=== PATIENT | female | born 1990 | race Two or more races ===

== ENCOUNTER 2019-05-24 20:45 | Inpatient (IN) | payer OTHER ==
[2019-05-24] MEDS ORDERED: LACTATED RINGERS SOLUTION 1,000 ML IV ONE (22:00)
[2019-05-24] MEDS ORDERED: LACTATED RINGERS SOLUTION 1,000 ML IV SCH (22:45)
[2019-05-24] MEDS ORDERED: BUTORPHANOL TARTRATE 1 MG/ML VIAL IVPB ONE (23:24)
[2019-05-24] MEDS ORDERED: BUTORPHANOL TARTRATE 1 MG/ML VIAL ONE (23:37)
--- NOTE | 2019-05-24 23:37 | HP ---
Past Medical History - Primary Care Physician PCP:: Isaías Vo - Admission Chief Complaint: labor History Source: Patient Limitations to Obtaining History: No Limitations - Past Medical History TAX CONSULTANT: No: Alzheimer's, CVA, Dementia, Migraine, Multiple Sclerosis, Peripheral Neuropathy, Parkinson's, Seizure, Syncope, TIA, Vertigo, Other Cardiovascular: No: AFIB, Aneurysm, Aortic Insufficiency, Aortic Stenosis, CAD, CHF, Deep Vein Thrombosis, HTN, Hyperlipdemia, [place], Mitral Insufficiency, Mitral Stenosis, Murmur, Pulmonary Hypertension, Other Pulmonary: No: Asthma, Bronchitis, Cancer, COPD, O2 Dependent, Pneumonia, Previously Intubated, Pulmonary Embolus, Pulmonary Fibrosis, Sleep Apnea, Other Gastrointestinal: Yes: Constipation, Other (gallbladder) Hepatobiliary: No: Cirrhosis, Cholelithiasis, Cholecystitis, Choledocholithiasis , Hepatitis A, Hepatitis B, Hepatitis C, Other Renal/: No: Renal Failure, Renal Inusuff, BPH, Cancer, Hematuria, Hemodialysis , Neurogenic Bladder, Renal Calculi, UTI, Other Reproductive: No: Ectopic , Endometriosis, Fibroids, PID, Polycystic Ovary Syndrome, Postmenopausal, Other ...: 1 ...Para: 0 ...Term: 0 ...: 0 ...Spon : 0 ...Induced : 0 ...LMP: 08/19/18 ... Weeks Gestation by Dates: 39.4 ...EDC by Dates: 05/26/19 Heme/Onc: No: Anemia, B12 Deficiency, Bleeding Disorder, Cancer, Current Chemotherapy, Current Radiation Therapy, Hemochromatosis, Hypercoaguable State, Myeloproliferative Synd, Sickle Cell Disease, Sickle Cell Trait, Thrombocytopenia, Other Infectious Disease: No: AIDS, C-Diff, Herpes Zoster, HIV, MRSA, STD's, Tuberculosis, VREF, Other Psych: No: Addictions, Anxiety, Bipolar, Depression, Panic, Psychosis, Schizophrenia, Other Musculoskeletal: No: Bursitis, Chronic low back pain, Hemiparesis, Hemiplegia, Osteoarthritis, Paraplegia, Other Rheumatology: No: Fibromyalgia, Gout, Lupus, Rheumatoid Arthritis, Sarcoidosis, Vasculitis, Other ENT: No: Allergic Rhinitis, Sinusitis, Other Endocrine: No: Allen's Disease, Cranston's Disease, Diabetes Insipidus, Diabetes Mellitus, Hyperparathyroidism, Hyperthyroidism, Hypothyroidism, Osteopenia, SIADH, Other Dermatology: No: Basal Cell, Cellulitis, Eczema, Melanoma, Psoriasis, Squamous Cell, Other - Past Surgical History Past Surgical History: No: None, AAA Repair, AICD, Amputation, Appendectomy, Arthrosocopy, AV Fistula/Graft, Bariatric Surgery, Breast Biopsy, Bypass, CABG, Carotid Endarterectomy, Cataract Removal, Cholecystectomy, Colectomy, Colonoscopy, Colostomy, Craniotomy, , Cystectomy, Hernia Repair, Hysterectomy, Ileal Conduit, Ileosotomy, Joint Replacement, Kidney Transplant, Laminectomy, Liver Transplant, Mastectomy, Nephrectomy, Oopherectomy, Orchiectomy, Permanent Pacemaker, Prostatectomy, Splenectomy, Stent, Thoracotomy , TURP, Tonsillectomy, Tubal Ligation, Upper Endoscopy, Valve Replacement, Vasectomy, Vein Stripping/Ligation Hx Myomectomy: No Hx Transabdominal Cerclage: No - Smoking History Smoking history: Never smoked Have you smoked in the past 12 months: No - Alcohol/Substance Use Hx Alcohol Use: No History of Substance Use: reports: None - Social History History of Recent Travel: Yes Home Medications - Allergies Allergies/Adverse Reactions: Allergies Allergy/AdvReac Type Severity Reaction Status Date / Time No Known Allergies Allergy Verified 05/24/19 06:34 - Home Medications Home Medications: Ambulatory Orders Prenat 115/Iron Fum/Folic/Dss [ 19 Tablet] 1 tab PO DAILY 05/15/19 Family Disease History - Family Disease History Family Disease History: Diabetes: Mother Review of Systems - Review of Systems Constitutional: denies: No Symptoms, Chills, Diaphoresis, Fever, Lethargy, Loss of Appetite, Malaise, Night Sweats, Unintentional Wgt. Loss, Weakness, Other Eyes: denies: No Symptoms, Blind Spots, Blurred Vision, Double Vision, Eye Pain , Floaters, Photophobia, Recent Change in Vision, Other HENT: denies: No Symptoms, Difficult Swallowing, Ear Discharge, Ear Pain, Epistaxis, Gingival Bleeding, Hearing Loss, Mouth Swelling, Nasal Congestion, Ocular Prosthesis, Throat Pain, Toothache, Ringing in Ears, Other Neck: denies: No Symptoms, Decreased ROM, Lumps, Pain on Movement, Stiffness, Swollen Glands, Tenderness, Other Cardiovascular: denies: No Symptoms, Chest Pain, Edema, Palpitations, Shortness of Breath, Other Respiratory: denies: No Symptoms, Cough, Exercise Intolerance, Hemoptysis, Orthopnea, PND, Snoring, SOB, SOB on Exertion, Wheezing, Other Gastrointestinal: denies: No Symptoms, Abdominal Pain, Bloating, Constipation, Diarrhea, Dysphagia, Indigestion, Melena, Nausea, Rectal Bleeding, Vomiting, Vomiting Blood, Other Genitourinary: denies: No Symptoms, Burning, Discharge, Dysuria, Flank Pain, Frequency, Hematuria, Incontinence, Lesions, Menses, Pain, Testicular Mass, Testicular Pain, Testicular Swelling, Urgency, Vaginal Bleeding, Other Breasts: denies: No Symptoms Reported, See HPI, Breast Implants, Discharge from Nipple, Lumps, Pain, Skin Changes, Other Musculoskeletal: denies: No Symptoms, Back Pain, Crepitus, Decreased ROM, Extremity Pain, Joint Pain, Joint Swelling, Muscle Pain, Muscle Cramps, Muscle Weakness, Other Integumentary: denies: No Symptoms, Blister, Bruising, Change in Color, Eczema, Erythema, Incision, Lesions, Lump, Pallor, Pruritis, Rash, Wound, Other Neurological: denies: No Symptoms, Change in LOC, Change in Speech, Confusion, Dizziness, Headache, Incoordination, Numbness, Parasthesia, Pre-Existing Deficit , Seizure, Syncope, Tremors, Unsteady Gait, Weakness, Other Endocrine: denies: No Symptoms, Excessive Sweating, Flushing, Increased Hunger, Increased Thirst, Intolerance to Cold, Intolerance to Heat, Unexplained Weight Gain, Unexplained Weight Loss, Other Hematology/Lymphatic: denies: No Symptoms, Easily Bruised, Excessive Bleeding, Swollen Glands, Other Psychiatric: denies: No Symptoms, Altered Sleep Pattern, Anxiety, Depression, Hallucinations, Panic, Paranoia, Suicidal, Other Physical Exam - Maternity Vital Signs: Vital Signs Temperature 98.6 F 05/24/19 21:52 Pulse Rate 105 H 05/24/19 21:52 Respiratory Rate 20 05/24/19 21:52 Blood Pressure 108/78 05/24/19 21:52 O2 Sat by Pulse Oximetry (%) Constitutional: Yes: Well Nourished HENT: Yes: Atraumatic, Normocephalic Neck: Yes: Supple Cardiovascular: Yes: Regular Rate and Rhythm Breast(s): Yes: Other (deferred) - Abdominal Exam/OB Number of Fetuses: Single Presentation: Vertex Contractions: Yes Regularity: Regular Intensity: Mod/Strong Monitor Mode: External Category: I Accelerations: Uniform Decelerations: None - Vaginal Exam/OB Vaginal Bleediing: No Speculum Exam: Yes (no pooling, mucus plug noted, nitrixine +) Dilatation (cm): 6 Effacement (%): 80 Amniotic Membrane Status: Bulging Nitrazine Test: Positive Presentation: Vertex/Position (OA) Station: -2 - Physical Exam Edema: LUE: 1+, RUE: 1+ Hemorrhage Risk Assessment - Risk Factors Medium Risk Factors: No: Prior , uterine surgery,or multiple laparotomies, Multiple gestation, Greater than 4 previous births, History of previous hemorrhage, Large myomas, EFW greater than 4000g, Obesity ( BMI >40), Hematocrit < 30% & other, None High Risk Factors: No: Placenta previa, low lying, Suspected accreta/ percreta, Active bleeding on admission, Platelets less than 70,000, Known coagulopathy, None Imaging - Results Ultrasound: Report Reviewed Assessment/Plan 28 y/o G1 @ 39.5wks by LMP consistent with 3rd trimester sono, late care seeker , [place], GBS negative, + Chlamydia testing S/P treatment, reassuring status and stable maternal condition, GDS not done and hemoglobin A1C WNL. Patient desires IV pain controlled. -Expectant management -IV Stadol -Anticipate VD
[2019-05-24 23:38] LABS: BASO % 0.6 % (0-2.0); EOS % 0.1 % (0-4.5); HEMATOCRIT 35.7 % (32.4-45.2); HEMOGLOBIN 12.2 GM/dL (10.7-15.3); LYMPH % 14.7 % (8-40); MCH 29.8 pg (25.7-33.7); MCHC 34.3 g/dl (32.0-36.0); MEAN CELL VOLUME 86.8 fl (80-96); MEAN PLT VOLUME 8.1 fl (7.5-11.1); MONO % 5.7 % (3.8-10.2); NEUT % 78.9 % (42.8-82.8); PLATELET COUNT 234 K/MM3 (134-434); RBC 4.11 M/mm3 (3.60-5.2); RDW 13.5 % (11.6-15.6)
[2019-05-24] MEDS ORDERED: OXYTOCIN 20 UNITS in 0.9% NS 20 UNIT/1,000 ML INFUS.BAG IV ONE (23:38)
[2019-05-24] MEDS ORDERED: LIDOCAINE HCL 1% PRESERVATIVE FREE - 30ML VIAL ONE (23:38)
[2019-05-24 23:40] LABS: EPI CELLS 8.1 /HPF (0-5/HPF); HYALINE CASTS 35 /lpf (0-8); PH,URINE >= 9.0 (5.0-8.0); URINE APPEARANCE CLEAR; URINE BACTERIA 100.7 /hpf (NEGATIVE); URINE BILIRUBIN NEGATIVE (NEGATIVE); URINE COLOR YELLOW; URINE GLUCOSE (UA) NEGATIVE (NEGATIVE); URINE KETONE NEGATIVE (NEGATIVE); URINE LEUK ESTERASE TRACE (NEGATIVE); URINE NITRITE NEGATIVE (NEGATIVE); URINE PROTEIN NEGATIVE (NEGATIVE); URINE RBC 2 /hpf (0-4); URINE UROBILINOGEN 0.2 mg/dL (0.2-1.0); URINE WBC 6 /hpf (0-5)
[2019-05-24 23:52] LABS: COCAINE, UR NEGATIVE ng/ml (CUTOFF=300); METHADONE, UR NEGATIVE ng/ml (CUTOFF=300); OPIATES, URI NEGATIVE ng/ml (CUTOFF=300); PHENCYCLIDINE,URINE NEGATIVE ng/ml (CUTOFF=25); URINE AMPHETAMINES NEGATIVE ng/ml (CUTOFF=500); URINE BARBITURATES NEGATIVE ng/ml (CUTOFF=200); URINE BENZODIAZEPINES NEGATIVE ng/ml (CUTOFF=200)
[2019-05-24 23:58] VITALS: BMI 26.3
[2019-05-25 00:02] LABS: BLOOD UREA NITROGEN 4.8 mg/dL (7-18); CREATININE 0.5 mg/dL (0.55-1.3)
[2019-05-25 00:23] LABS: INR 0.96 (0.83-1.09); PROTHROMBIN TIME (PATIENT) 11.3 SEC (9.7-13.0)
[2019-05-25 00:25] LABS: ACTIVATED PTT 28.2 SECONDS (25.2-36.5)
[2019-05-25] MEDS ORDERED: ACETAMINOPHEN 325 MG TABLET (FP) ONE (05:58)
[2019-05-25] MEDS ORDERED: IBUPROFEN 600 MG TABLET (FP) PO ONE (05:58)
[2019-05-25] MEDS: ACETAMINOPHEN 325 MG TABLET (FP) PO PRN ×2 (06:00→10:05)
[2019-05-25] MEDS: IBUPROFEN 600 MG TABLET (FP) PO PRN ×2 (06:00→10:04)
[2019-05-25] MEDS ORDERED: BENZOCAINE 20% 57 GM BOTTLE TP PRN (06:01)
[2019-05-25] MEDS ORDERED: WITCH HAZEL 50% (TUCKS) 40 PAD/JAR PAD TP PRN (06:01)
[2019-05-25] MEDS ORDERED: BISACODYL 10 MG SUPP.RECT RC PRN (06:01)
[2019-05-25] MEDS ORDERED: BENZOCAINE 28 GM HEMORRHOIDAL OINTMENT TP PRN (06:01)
[2019-05-25] MEDS ORDERED: OXYTOCIN 20 UNITS in 0.9% NS 20 UNIT/1,000 ML INFUS.BAG IV SCH (06:15)
--- NOTE | 2019-05-25 06:31 | PN ---
Delivery - Delivery Vaginal Delivery: Spontaneous Type of Anesthesia: Local Episiotomy/Laceration: 2nd degree EBL (cc): 350 Delivery, Single - Stages of Labor Placenta: Yes: Spontaneous (intact, 3VC) - Condition of Infant Gender: Female Position: OA - Feeding Plan Initial Plan: Elected not to breastfeed exclusively throughout hospitalization Remarks - Remarks Remarks: Infant's head delivered with maternal expulsive efforts followed by shoulders and rest of the body. Placenta delivered spontaneously and intact. Exam revealed 2nd degree perineal laceration and repaired with 3.0 polysorb in standard fashion. Rectal exam revealed intact mucosa and excellent re- approximation. Instrument/sponge count correct x 2 and confirmed by nurse.
[2019-05-25] MEDS ORDERED: OXYTOCIN 20 UNITS in 0.9% NS 20 UNIT/1,000 ML INFUS.BAG IV ONE (07:45)
[2019-05-25] MEDS ORDERED: MORPHINE SULFATE 2 MG/ML VIAL IVPUSH ONE (10:45)
[2019-05-25] MEDS ORDERED: LIDOCAINE HCL 1% PRESERVATIVE FREE - 30ML VIAL ONE (11:14)
[2019-05-25] MEDS ORDERED: ONDANSETRON 4 MG/2 ML VIAL IVPUSH PRN (11:26)
[2019-05-25] MEDS ORDERED: LACTATED RINGERS SOLUTION 1,000 ML IV SCH (11:30)
--- NOTE | 2019-05-25 11:31 | PN ---
Progress Note (short form) - Note Progress Note: Patient evaluated for large expanding vaginal hematoma. Vitals stable and IV crystalloid fluid replacement initiated. Stat labs sent and patient will be going to the OR for evacuation.
[2019-05-25 11:42] LABS: BASO % 0.3 % (0-2.0); HEMATOCRIT 27.9 % (32.4-45.2); HEMOGLOBIN 9.6 GM/dL (10.7-15.3); LYMPH % 9.8 % (8-40); MCH 29.9 pg (25.7-33.7); MCHC 34.3 g/dl (32.0-36.0); MEAN CELL VOLUME 87.1 fl (80-96); MEAN PLT VOLUME 7.9 fl (7.5-11.1); MONO % 5.8 % (3.8-10.2); NEUT % 84.1 % (42.8-82.8); PLATELET COUNT 219 K/MM3 (134-434); RDW 13.2 % (11.6-15.6); WHITE BLOOD COUNT 14.5 K/mm3 (4.0-10.0)
[2019-05-25] MEDS ORDERED: MIDAZOLAM HCL 2 MG/2 ML SINGLE DOSE VIAL ONE (12:03)
[2019-05-25] MEDS ORDERED: SUCCINYLCHOLINE CHLORIDE 200 MG/10 ML SYRINGE ONE (12:09)
[2019-05-25] MEDS ORDERED: KETOROLAC TROMETHAMINE 30 MG/1 ML VIAL ONE (12:11)
[2019-05-25] MEDS ORDERED: DEXAMETHASONE SOD PHOSPHATE 4 MG/1 ML VIAL ONE (12:11)
[2019-05-25] MEDS ORDERED: LIDOCAINE HCL/PF 2% SDV 5ML VIAL ONE (12:11)
[2019-05-25] MEDS ORDERED: PROPOFOL 20 ML ONE ×2 (12:11→12:24)
[2019-05-25] MEDS ORDERED: ePHEDrine SULFATE 50 MG/1 ML AMPULE ONE (12:37)
[2019-05-25] MEDS ORDERED: SEVOFLURANE 250 ML BTL ONE (12:38)
[2019-05-25] MEDS ORDERED: ROCURONIUM BROMIDE 50 MG/5 ML SYRINGE ONE (13:03)
[2019-05-25] MEDS ORDERED: NEOSTIGMINE METHYLSULFATE 0.5 MG/ML - 10 ML MDV ONE (13:04)
[2019-05-25] MEDS ORDERED: GLYCOPYRROLATE 0.2 MG/1 ML VIAL ONE (13:05)
[2019-05-25 15:22] LABS: BASO % 0.2 % (0-2.0); HEMATOCRIT 29.9 % (32.4-45.2); HEMOGLOBIN 10.1 GM/dL (10.7-15.3); LYMPH % 8.7 % (8-40); MCH 29.3 pg (25.7-33.7); MCHC 33.9 g/dl (32.0-36.0); MEAN CELL VOLUME 86.5 fl (80-96); MEAN PLT VOLUME 7.8 fl (7.5-11.1); MONO % 2.3 % (3.8-10.2); NEUT % 88.8 % (42.8-82.8); PLATELET COUNT 174 K/MM3 (134-434); RBC 3.45 M/mm3 (3.60-5.2); RDW 14.5 % (11.6-15.6); WHITE BLOOD COUNT 13.1 K/mm3 (4.0-10.0)
[2019-05-25 15:34] LABS: INR 1.01 (0.83-1.09); PROTHROMBIN TIME (PATIENT) 11.9 SEC (9.7-13.0)
[2019-05-25 15:37] LABS: ACTIVATED PTT 27.4 SECONDS (25.2-36.5)
[2019-05-25 15:45] LABS: BLOOD UREA NITROGEN 3.3 mg/dL (7-18); CALCIUM 8.9 mg/dL (8.5-10.1); CREATININE 0.5 mg/dL (0.55-1.3); POTASSIUM 4.6 mmol/L (3.5-5.1)
--- NOTE | 2019-05-25 15:58 | OP ---
Operative Note - Note: Operative Date: 05/25/19 (DiC # [id number]) Pre-Operative Diagnosis: Vaginal hematoma Operation: Exam under anesthesia, evalcuation of hematoma and reoair Findings: see dictation Implants: none Post-Operative Diagnosis: Same as Pre-op Surgeon: Isaías Vo Anesthesia: General Estimated Blood Loss (mls): 1,000 Drains, Volume Out (mls): 2,000 Blood Volume Replaced (mls): 2 Fluid Volume Replaced (mls): 3,000 Operative Report Dictated: Yes
[2019-05-25] MEDS ORDERED: CEFAZOLIN 1 GM in DEXTROSE 5%-WATER - 50 ML IVPB SCH (16:00)
[2019-05-25] MEDS: CEFAZOLIN 1 GM/D5W 1 GM/50 ML BAG IVPB SCH (16:31)
--- NOTE | 2019-05-25 17:54 | OP ---
DATE OF OPERATION: 05/25/2019 ATTENDING: Tabby Ralph MD PREOPERATIVE DIAGNOSIS: A 28-year-old, 1, para 1, on day number 1, vaginal hematoma, expanding, with severe pain. POSTOPERATIVE DIAGNOSIS: A 28-year-old, 1, para 1, on day number 1, vaginal hematoma, expanding, with severe pain. PROCEDURE: Exam under anesthesia, evacuation of left vaginal sulcus hematoma. SURGEON: Tabby Ralph MD CONSTRUCTION DRILLER: None. ANESTHESIA: General. ESTIMATED BLOOD LOSS: 1 L. IV FLUIDS: 2 L of clear fluid. URINE OUTPUT: 2 L of clear urine. FINDINGS: A large expanding bleeding hematoma in left vaginal sulcus. Hematoma was involving the posterior aspect of the left labia majora and perianal area. Rectal examination prior to initiation of the procedure, during the procedure, and at conclusion of the procedure revealed intact rectal mucosa. COMPLICATIONS: None. BLOOD GIVEN: Intraoperative administration of 2 of packed red blood cells. The patient was taken to the operating room, where anesthesia was found to be adequate. A Jenkins catheter was previously placed in L&D atraumatically. The patient was prepped and draped in a normal sterile fashion. Appropriate timeout took place. Rectal examination, as previously mentioned, performed by attending. Exam revealed a large left vaginal sulcus hematoma approximately 10 x 15 cm. The previous perineal laceration repaired was taken down by the surgeon. The vaginal mucosa at the greatest point of hematoma distention was thin and friable. Incidental drainage of large hematoma occurred during examination as the vaginal tissue disintegrated at this point. Hematoma was completely explored and blood clots broken down. The area was copiously irrigated. A rectal exam ensued and intact rectal mucosa noted. The defect extended [facility] the length of the vagina and approximately 5 cm into left perineal area. Excellent visualization of the apex and hematoma cavity borders was obtained. The defect was repaired in 3 layers utilizing a combination of running and interrupted Polysorb 3-0 suture. The complete defect was obliterated. Appropriate structural reapproximation was achieved. The vaginal mucosa tear apex was identified and reapproximated with 3-0 Polysorb in a running locked fashion to the level of the hymenal ring. A crown stitch followed and perineal laceration repaired in the standard fashion. Excellent reapproximation and hemostasis was noted from the perineal and vaginal area. The vagina was packed with Kerlix. Instrument count, sponge count was reported correct x2 by the staff. Patient tolerated procedure well and was going to recovery room in stable condition. TABBY RALPH MD [id number] MTDD
[2019-05-25] MEDS ORDERED: oxyCODONE HCL 5 MG TABLET PO PRN (18:59)
[2019-05-26] MEDS: CEFAZOLIN 1 GM/D5W 1 GM/50 ML BAG IVPB SCH ×2 (01:01→08:39)
[2019-05-26 07:08] LABS: BASO % 0.2 % (0-2.0); EOS % 0.2 % (0-4.5); HEMATOCRIT 21.3 % (32.4-45.2); HEMOGLOBIN 7.3 GM/dL (10.7-15.3); LYMPH % 22.3 % (8-40); MCH 29.2 pg (25.7-33.7); MCHC 34.3 g/dl (32.0-36.0); MEAN CELL VOLUME 85.1 fl (80-96); MEAN PLT VOLUME 7.9 fl (7.5-11.1); MONO % 6.1 % (3.8-10.2); NEUT % 71.2 % (42.8-82.8); PLATELET COUNT 167 K/MM3 (134-434); RBC 2.51 M/mm3 (3.60-5.2); RDW 15.1 % (11.6-15.6); WHITE BLOOD COUNT 12.9 K/mm3 (4.0-10.0)
[2019-05-26 07:15] LABS: BLOOD UREA NITROGEN 4.3 mg/dL (7-18); CREATININE 0.4 mg/dL (0.55-1.3)
--- NOTE | 2019-05-26 08:08 | PN ---
Progress Note (short form) - Note Progress Note: Anesthesia Post op Pt seen and xamined S:Alert and awake comfortable O; Vital Signs Temperature 98.2 F 05/26/19 04:00 Pulse Rate 95 H 05/26/19 04:00 Respiratory Rate 18 05/26/19 04:00 Blood Pressure 94/61 05/26/19 04:00 O2 Sat by Pulse Oximetry (%) 100 05/25/19 21:00 CBC, BMP 05/26/19 06:22 05/26/19 06:22 A/P: s/p evacuation of vaginal hematoma Anemia Doing well post op Continue current care Augusto Alexis MD
--- NOTE | 2019-05-26 09:33 | PN ---
Post Progress Note - Subjective Subjective: Patient is doing well, reports improved pain and swelling to the area. Tom in place as well as packing. Patient is breast feeding, not yet ambulating, tolerating PO Post Day: 1 (POD # 1) Type of Delivery: Vital Signs: Vital Signs Temperature 98.2 F 05/26/19 04:00 Pulse Rate 95 H 05/26/19 04:00 Respiratory Rate 18 05/26/19 04:00 Blood Pressure 94/61 05/26/19 04:00 O2 Sat by Pulse Oximetry (%) 100 05/25/19 21:00 Breast Exam: Yes: Other (deferred) Uterus: Yes: Fundus Firm Incision: Yes: Other (Vaginal packing removed, mildly blood stained) Lochia, amount: Small Extremities: Yes: Calves non-tender Perineum: Yes: Laceration (Sutures are intact and incision closed, no active bleeding, left labia majora edema dexcreased with no induration nor crepitus, mild ecchymosis on left posterior labia majora and perineal/gluteal area, mild tenderness to palpation) Activity: Other (not yet) - Labs Labs: CBC WBC 12.9 K/mm3 (4.0-10.0) H 05/26/19 06:22 RBC 2.51 M/mm3 (3.60-5.2) L 05/26/19 06:22 Hgb 7.3 GM/dL (10.7-15.3) L 05/26/19 06:22 Hct 21.3 % (32.4-45.2) L D 05/26/19 06:22 MCV 85.1 fl (80-96) 05/26/19 06:22 MCH 29.2 pg (25.7-33.7) 05/26/19 06:22 MCHC 34.3 g/dl (32.0-36.0) 05/26/19 06:22 RDW 15.1 % (11.6-15.6) 05/26/19 06:22 Plt Count 167 K/MM3 (134-434) 05/26/19 06:22 MPV 7.9 fl (7.5-11.1) 05/26/19 06:22 Absolute Neuts (auto) 9.2 K/mm3 (1.5-8.0) H 05/26/19 06:22 Neutrophils % 71.2 % (42.8-82.8) 05/26/19 06:22 Lymphocytes % 22.3 % (8-40) D 05/26/19 06:22 Monocytes % 6.1 % (3.8-10.2) D 05/26/19 06:22 Eosinophils % 0.2 % (0-4.5) D 05/26/19 06:22 Basophils % 0.2 % (0-2.0) 05/26/19 06:22 Nucleated RBC % 0 % (0-0) 05/26/19 06:22 Other Findings, Remarks: Patient is not in acute distress, PP and breast feeding recommendations discussed. Assessment/Plan 28 y/o on PPD # 1 and POD #1 S/P left vaginal sulcus hematoma evacuation, in stable condition with improved clinical condition. S/P 2 PRBC intra-op administration. Vaginal packing removed today. Post-op anemia and patient is asymptomatic, adequate urinary output. -AM CBC -D/C tom and continue I/O monitoring -Stool softeners, nothing per vaginal nor rectum -Encourage ambulation -Consider transfusion if symptomatic once out of bed -Anticipate D/C home on POD/PPD # 3
[2019-05-26] MEDS: MAGNESIUM HYDROX 2400MG/30ML ORAL SUSPENSION 30 ML CUP PO SCH (10:48)
[2019-05-26] MEDS: ACETAMINOPHEN 325 MG TABLET (FP) PO PRN (13:44)
[2019-05-26] MEDS: IBUPROFEN 200 MG TABLET PO PRN (13:49)
[2019-05-26] MEDS ORDERED: SENNOSIDES/DOCUSATE COMBO (SENNA PLUS) TABLET (UD) PO PRN (22:00)
[2019-05-27 08:03] LABS: BASO % 0.3 % (0-2.0); EOS % 1.6 % (0-4.5); HEMATOCRIT 20.5 % (32.4-45.2); LYMPH % 24.9 % (8-40); MCHC 33.8 g/dl (32.0-36.0); MEAN CELL VOLUME 85.8 fl (80-96); MEAN PLT VOLUME 7.8 fl (7.5-11.1); MONO % 4.8 % (3.8-10.2); NEUT % 68.4 % (42.8-82.8); PLATELET COUNT 164 K/MM3 (134-434); RBC 2.39 M/mm3 (3.60-5.2); RDW 14.9 % (11.6-15.6); WHITE BLOOD COUNT 12.4 K/mm3 (4.0-10.0)
[2019-05-27] MEDS: ACETAMINOPHEN 325 MG TABLET (FP) PO PRN ×2 (08:16→20:47)
[2019-05-27] MEDS: IBUPROFEN 200 MG TABLET PO PRN ×2 (08:17→20:47)
[2019-05-27 08:49] LABS: HEMOGLOBIN 6.9 GM/dL (10.7-15.3)
[2019-05-27] MEDS: MAGNESIUM HYDROX 2400MG/30ML ORAL SUSPENSION 30 ML CUP PO SCH (10:50)
--- NOTE | 2019-05-27 15:06 | PN ---
Post Progress Note Post Day: 2 Type of Delivery: Vital Signs: Vital Signs Temperature 98.8 F 05/27/19 13:18 Pulse Rate 112 H 05/27/19 13:18 Respiratory Rate 18 05/27/19 13:18 Blood Pressure 108/61 05/27/19 13:18 O2 Sat by Pulse Oximetry (%) 100 05/25/19 21:00 - Labs Labs: CBC WBC 12.4 K/mm3 (4.0-10.0) H 05/27/19 06:51 RBC 2.39 M/mm3 (3.60-5.2) L 05/27/19 06:51 Hgb 6.9 GM/dL (10.7-15.3) L* 05/27/19 06:51 Hct 20.5 % (32.4-45.2) L 05/27/19 06:51 MCV 85.8 fl (80-96) 05/27/19 06:51 MCH 29.0 pg (25.7-33.7) 05/27/19 06:51 MCHC 33.8 g/dl (32.0-36.0) 05/27/19 06:51 RDW 14.9 % (11.6-15.6) 05/27/19 06:51 Plt Count 164 K/MM3 (134-434) 05/27/19 06:51 MPV 7.8 fl (7.5-11.1) 05/27/19 06:51 Absolute Neuts (auto) 8.5 K/mm3 (1.5-8.0) H 05/27/19 06:51 Neutrophils % 68.4 % (42.8-82.8) 05/27/19 06:51 Lymphocytes % 24.9 % (8-40) 05/27/19 06:51 Monocytes % 4.8 % (3.8-10.2) 05/27/19 06:51 Eosinophils % 1.6 % (0-4.5) D 05/27/19 06:51 Basophils % 0.3 % (0-2.0) 05/27/19 06:51 Nucleated RBC % 0 % (0-0) 05/27/19 06:51 Assessment/Plan 28yo s/p , PPD#2 c/b hematoma with blood loss H/H reviewed, 6.9 /20, asymptomatic Repeat CBC in AM Continue PO iron D/C to home on PPD#2
--- NOTE | 2019-05-28 07:06 | PN ---
Post Progress Note - Subjective Subjective: c/o pain in perineum area less than before, feels better, pain tolerable voiding large amount of urine as per nurse. no difficulty in voiding urine c/o dizziness sometimes, but less than yesterday Post Day: 3 Type of Delivery: Vital Signs: Vital Signs Temperature 98.7 F 05/28/19 05:45 Pulse Rate 108 H 05/28/19 05:45 Respiratory Rate 18 05/28/19 05:45 Blood Pressure 110/68 05/28/19 05:45 O2 Sat by Pulse Oximetry (%) 99 05/27/19 22:00 Breast Exam: Yes: Soft, Engorged (BF , pt is also bottle feeding , she is encouraged to breast feed only. breast is not tender) Uterus: Yes: Fundus Firm, Fundus below umbilicus, Non-tender Lochia: Yes: Rubra Lochia, amount: Moderate Extremities: Yes: Calves non-tender Perineum: Yes: Laceration (healing. no swelling of vulva is noted . except large area of echymoses around left side of perineum & Lt labium majus is ssen) Activity: Ambulating - Labs Labs: CBC WBC 12.4 K/mm3 (4.0-10.0) H 05/27/19 06:51 RBC 2.39 M/mm3 (3.60-5.2) L 05/27/19 06:51 Hgb 6.9 GM/dL (10.7-15.3) L* 05/27/19 06:51 Hct 20.5 % (32.4-45.2) L 05/27/19 06:51 MCV 85.8 fl (80-96) 05/27/19 06:51 MCH 29.0 pg (25.7-33.7) 05/27/19 06:51 MCHC 33.8 g/dl (32.0-36.0) 05/27/19 06:51 RDW 14.9 % (11.6-15.6) 05/27/19 06:51 Plt Count 164 K/MM3 (134-434) 05/27/19 06:51 MPV 7.8 fl (7.5-11.1) 05/27/19 06:51 Absolute Neuts (auto) 8.5 K/mm3 (1.5-8.0) H 05/27/19 06:51 Neutrophils % 68.4 % (42.8-82.8) 05/27/19 06:51 Lymphocytes % 24.9 % (8-40) 05/27/19 06:51 Monocytes % 4.8 % (3.8-10.2) 05/27/19 06:51 Eosinophils % 1.6 % (0-4.5) D 05/27/19 06:51 Basophils % 0.3 % (0-2.0) 05/27/19 06:51 Nucleated RBC % 0 % (0-0) 05/27/19 06:51 Problem List - Problems (1) examination following vaginal delivery Code(s): Z39.2 - ENCOUNTER FOR ROUTINE FOLLOW-UP (2) Anemia Code(s): D64.9 - ANEMIA, UNSPECIFIED Assessment/Plan s/p vaginal delivery & drainage of Left perineum hematoma , & anemia secondary to it pt stable , still dizzy sometimes , & she has mild tachycardia . CBC report from today pending . r/b/a of blood transfusion discussed . she will wait for today's resilt before accepting blood transfusion. discharge pending cbc result anemia counselled
[2019-05-28 07:15] LABS: BASO % 0.4 % (0-2.0); EOS % 2.9 % (0-4.5); HEMATOCRIT 25.1 % (32.4-45.2); HEMOGLOBIN 8.5 GM/dL (10.7-15.3); LYMPH % 30.3 % (8-40); MCH 29.6 pg (25.7-33.7); MEAN CELL VOLUME 87.1 fl (80-96); MEAN PLT VOLUME 7.3 fl (7.5-11.1); MONO % 4.6 % (3.8-10.2); NEUT % 61.8 % (42.8-82.8); PLATELET COUNT 216 K/MM3 (134-434); RBC 2.88 M/mm3 (3.60-5.2); RDW 14.3 % (11.6-15.6); WHITE BLOOD COUNT 11.7 K/mm3 (4.0-10.0)
[2019-05-28 08:37] VITALS: BP 102/71; PULSE 96; TEMP 98.5
[2019-05-28 09:49] LABS: ANISOCYTOSIS 0; MACROCYTOSIS 0; PLATELET ESTIMATE NORMAL
[2019-05-28] MEDS: MAGNESIUM HYDROX 2400MG/30ML ORAL SUSPENSION 30 ML CUP PO SCH (10:02)
--- NOTE | 2019-07-30 13:49 | DS ---
Physical Examination Vital Signs: Vital Signs Temperature 98.5 F 05/28/19 08:34 Pulse Rate 96 H 05/28/19 08:34 Respiratory Rate 18 05/28/19 08:34 Blood Pressure 102/71 05/28/19 08:34 O2 Sat by Pulse Oximetry (%) 99 05/27/19 22:00 Constitutional: Yes: Calm HENT: Yes: Atraumatic Neck: Yes: Supple Respiratory: Yes: Regular Edema: No Integumentary: Yes: WNL Wound/Incision: Yes: Well Approximated Neurological: Yes: Alert, Oriented ...Motor Strength: WNL Psychiatric: Yes: Alert, Oriented Labs: CBC, BMP 05/28/19 06:55 05/26/19 06:22 Discharge Summary Problems reviewed: Yes Reason For Visit: LABOR ADMIT vaginal delivery -Vaginal hematoma evacuation Hospital Course: Patient was admitted for VD. Recovery complicated by vaginal hematoma requiring surgical evacuation and blood transfusion. She was in stable condition on PPD # 3 and was discharge home Plan of Treatment: Follow up as outpatient Condition: Stable - Instructions Diet, Activity, Other Instructions: Regular Diet Follow up in one week with Dr. Vo Referrals: Isaías Vo MD [Staff Physician] - Disposition: HOME - Home Medications Comprehensive Discharge Medication List: Ambulatory Orders Vitamins (Sjr) - 1 tab PO DAILY 05/25/19 Ferrous Sulfate [Feosol] 325 mg PO DAILY #30 tablet 05/27/19 Ibuprofen [Motrin -] 600 mg PO QID PRN #28 tablet 05/27/19 Docusate Sodium [Colace] 100 mg PO BID #20 capsule 05/28/19
== END 2019-05-28 12:45 | disposition home or self-care (01) | DRG 560 ==
LOC: JDEL 20:45 → JLDR 22:45 → J3W 05-25 07:50
PROVIDERS: ADMIT Student in an Organized Health Care Education/Training Program; ATTEND Student in an Organized Health Care Education/Training Program
PROC: 0KQM0ZZ Repair Perineum Muscle, Open Approach (ICD-10-PCS; 2019-05-25)
PROC: 0U9GXZZ Drainage of Vagina, External Approach (ICD-10-PCS; 2019-05-25)
PROC: 0UQGXZZ Repair Vagina, External Approach (ICD-10-PCS; 2019-05-25)
PROC: 10E0XZZ Delivery of Products of Conception, External Approach (ICD-10-PCS; principal; 2019-05-25 12:30)
DX: O70.1 Second degree perineal laceration during delivery (principal); O71.7 Obstetric hematoma of pelvis; Z3A.39 39 weeks gestation of pregnancy; Z37.0 Single live birth
CPT/HCPCS: 36415; 36430; 36511; 59409; 80048; 80307; 81003; 85025; 85384; 85610; 85730; 86593; 86850; 86900; 86901; 86922; 94760; P9038; P9058

== ENCOUNTER 2022-01-31 10:30 | Emergency (ER) | payer OTHER ==
[2022-01-31 10:38] VITALS: BMI 24.5
[2022-01-31] MEDS ORDERED: SODIUM CHLORIDE 1,000 ML IV STA (11:07)
[2022-01-31] MEDS ORDERED: ONDANSETRON 4 MG/2 ML VIAL IVPUSH ONE (11:08)
[2022-01-31] MEDS ORDERED: MAG HYDROX/AL HYDROX/SIMETH 30 ML UNIT-DOSE CUP PO ONE (11:08)
[2022-01-31] MEDS ORDERED: ONDANSETRON 4 MG/2 ML VIAL ONE (11:22)
[2022-01-31] MEDS ORDERED: MAG HYDROX/AL HYDROX/SIMETH 30 ML UNIT-DOSE CUP ONE (11:22)
[2022-01-31 11:36] LABS: BASO % 0.4 % (0-2.0); EOS % 1.5 % (0-4.5); HEMATOCRIT 42.2 % (32.4-45.2); LYMPH % 22.3 % (8-40); MCH 28.7 pg (25.7-33.7); MCHC 33.3 g/dl (32.0-36.0); MEAN CELL VOLUME 86.2 fl (80-96); MEAN PLT VOLUME 7.7 fl (7.5-11.1); MONO % 7.6 % (3.8-10.2); NEUT % 68.2 % (42.8-82.8); PLATELET COUNT 270 10^3/uL (134-434); RBC 4.89 M/mm3 (3.60-5.2); RDW 13.1 % (11.6-15.6); WHITE BLOOD COUNT 9.2 K/mm3 (4.0-10.0)
[2022-01-31 12:02] LABS: URINE APPEARANCE CLEAR; URINE BILIRUBIN NEGATIVE (NEGATIVE); URINE COLOR YELLOW; URINE GLUCOSE (UA) NEGATIVE (NEGATIVE); URINE KETONE NEGATIVE (NEGATIVE); URINE LEUK ESTERASE NEGATIVE (NEGATIVE); URINE NITRITE NEGATIVE (NEGATIVE); URINE PROTEIN NEGATIVE (NEGATIVE); URINE UROBILINOGEN 0.2 mg/dL (0.2-1.0)
[2022-01-31 12:16] LABS: BLOOD UREA NITROGEN 9.3 mg/dL (7-18); CALCIUM 9.1 mg/dL (8.5-10.1)
[2022-01-31 12:19] LABS: CREATININE 0.7 mg/dL (0.55-1.3)
[2022-01-31 12:21] LABS: BILIRUBIN,TOTAL 0.4 mg/dL (0.2-1); TOT PROT 7.6 g/dl (6.4-8.2)
[2022-01-31] MEDS ORDERED: KETOROLAC TROMETHAMINE 30 MG/1 ML VIAL IVPUSH ONE (15:14)
[2022-01-31] MEDS ORDERED: FAMOTIDINE 20 MG TABLET PO ONE (15:14)
[2022-01-31] MEDS ORDERED: KETOROLAC TROMETHAMINE 30 MG/1 ML VIAL ONE (15:24)
[2022-01-31] MEDS ORDERED: FAMOTIDINE 20 MG TABLET ONE (15:25)
[2022-01-31 16:52] VITALS: BP 99/65; PULSE 81; TEMP 98.3
== END 2022-01-31 16:45 | disposition home or self-care (01) ==
LOC: JER 10:30
PROC: 3E033GC Introduction of Other Therapeutic Substance into Peripheral Vein, Percutaneous Approach (ICD-10-PCS; principal; 2022-01-31)
DX: K29.00 Acute gastritis without bleeding (principal)
CPT/HCPCS: 36415; 76705-TC; 80053; 81003; 83690; 85025; 86708; 86850; 86900; 86901; 87340; 87517; 96361; 96374; 96375; 99284-25